=== PATIENT | male | born 2000 | race African-American/Black ===

== ENCOUNTER 2025-03-03 18:28 | Emergency (ER) | payer OTHER ==
[2025-03-03 18:38] VITALS: BP 125/77; PULSE 98; RESP 18; TEMP 98.6; BMI 25.0
[2025-03-03] MEDS ORDERED: diphenhydrAMINE HCL 25 MG CAPSULE (FP) PO ONE (19:09)
[2025-03-03] MEDS ORDERED: FAMOTIDINE 20 MG TABLET ONE ×2 (19:10→19:12)
[2025-03-03] MEDS ORDERED: DEXAMETHASONE SOD PHOSPHATE 10 MG/1 ML VIAL ONE (19:10)
[2025-03-03] MEDS: diphenhydrAMINE HCL 50 MG CAPSULE PO ONE (19:14)
[2025-03-03] MEDS: FAMOTIDINE 20 MG TABLET PO ONE (19:14)
[2025-03-03] MEDS: DEXAMETHASONE SOD PHOSPHATE 10 MG/1 ML VIAL IM ONE (19:14)
== END 2025-03-03 19:19 | disposition home or self-care (01) ==
LOC: JERFT 18:28
PROC: 3E023GC Introduction of Other Therapeutic Substance into Muscle, Percutaneous Approach (ICD-10-PCS; principal; 2025-03-03)
DX: L50.9 Urticaria, unspecified (principal); L29.9 Pruritus, unspecified; R21 Rash and other nonspecific skin eruption
CPT/HCPCS: 99284-25; J1100